=== PATIENT | male | born 1965 | race Caucasian/White ===

== ENCOUNTER 2017-04-01 19:42 | Emergency (ER) | payer BC ==
[2017-04-01] MEDS ORDERED: LOSARTAN POTASS50 MG PO (19:53)
[2017-04-01] MEDS ORDERED: LEVOTHYROXINE (19:53)
== END 2017-04-01 23:01 | disposition home or self-care (01) ==
LOC: SED 19:42
DX: K21.9 Gastro-esophageal reflux disease without esophagitis (principal); F10.10 Alcohol abuse, uncomplicated; I10 Essential (primary) hypertension; E03.9 Hypothyroidism, unspecified
CPT/HCPCS: 36415; 96374; 96375; 99284; J2405; J2765